=== PATIENT | female | born 1960 | race Two or more races ===

== ENCOUNTER 2022-06-28 10:37 | Emergency (ER) | payer BC, OTHER ==
[2022-06-28 11:25] VITALS: BP 159/73; PULSE 77; RESP 18; TEMP 97.6; BMI 35.1
[2022-06-28] MEDS ORDERED: ACETAMINOPHEN 500 MG TABLET (FP) PO ONE (12:24)
== END 2022-06-28 13:05 | disposition home or self-care (01) ==
LOC: JER 10:37
DX: J02.9 Acute pharyngitis, unspecified (principal); R09.81 Nasal congestion
CPT/HCPCS: 0241U-QW; 99283-25